=== PATIENT | female | born 1965 | race Two or more races ===

== ENCOUNTER 2024-10-06 14:01 | Emergency (ER) | payer MEDICARE, MEDICAID, SELFPAY ==
--- NOTE | 2024-10-06 14:18 | XR_ITS ---
Examination: Forearm, left, 2 views. Technique: Forearm, AP, lateral 2 views Date and time of exam: October 06, 2024 1839 hours INDICATIONS: Patient fell 4 days ago with injury to the forearm, forearm pain. FINDINGS: No acute fracture No dislocation IMPRESSION: No acute fracture
--- NOTE | 2024-10-06 14:18 | XR_ITS ---
Examination: Shoulder,left, 3 views Technique: Shoulder AP internal rotation, AP external rotation, Y view shoulder, 3 views Exam date and time :October 06, 2024 1539 hours INDICATIONS: Patient fell 4 days ago with injury to the shoulder, shoulder pain. FINDINGS: Acute comminuted fracture humeral neck without significant displacement Prominent osteopenia Prominent narrowing glenohumeral joint IMPRESSION: Acute comminuted fracture humeral neck
--- NOTE | 2024-10-06 14:18 | XR_ITS ---
Examination: Left elbow 3 views Technique: Elbow AP, oblique, lateral 3 views Exam date and time: October 06, 2024 1539 hours INDICATIONS: Left elbow pain beginning 4 days ago. FINDINGS: No acute fracture No dislocation No foreign body IMPRESSION: No acute fracture.
[2024-10-06 14:24] VITALS: BP 129/85; PULSE 73; RESP 20; TEMP 37; O2SAT 100
--- NOTE | 2024-10-06 14:30 | EDNOTE_ITS ---
<Statement entered by Ilene Manzanares MD - 10/06/24 17:40> As co-signing physician, I was present and available for consult prn. I concur with the plan and care as documented by the midlevel provider. Upper Extremity Injury RME/HPI General Chief Complaint: Extremity Injury, Upper Stated Complaint: fall, c/o left upper arm pain Time Seen by Provider: 10/06/24 14:10 Source: patient Arrival date/time: 10/06/24 14:01 59-year-old female with no known medical history presents to the emergency room with a chief complaint of left upper arm pain x 2 days. Patient states that since his head injury her bruising has progressively gotten worse. Mode of arrival: ambulatory Limitations: no limitations Related Data Previous Rx's ?Medication ?Instructions ?Recorded hydrocodone 5 mg-acetaminophen 325 1 tab PO BID PRN pa in #14 tabs 07/26/ mg tablet ibuprofen 600 mg tablet 600 mg PO Q8H PRN fever or p ain 10/06/24 #20 tabs Allergies Allergy/AdvReac Type Severity Reaction Status Date / Time NKA Allergy Uncoded 10/06/24 14:05 Review of Systems Review of Systems Systems Reviewed: All systems reviewed, normal except as documented Constitutional Constitutional: Reports system reviewed and no additional complaints, except as documented, Denies fatigue, Denies fever(s), Denies headache(s) and Denies weakness Eyes Eyes: Reports system reviewed and no additional complaints, except as documented, Denies blurry vision and Denies change in vision ENT Ears, Nose, Mouth, and Throat: Reports system reviewed and no additional complaints, except as documented, Denies otalgia, Denies headache(s), Denies nasal congestion, Denies throat swelling and Denies vertigo Cardiovascular Cardiovascular: Reports system reviewed and no additional complaints, except as documented, Denies chest pain, Denies dyspnea and Denies dyspnea on exertion Respiratory Respiratory: Reports system reviewed and no additional complaints, except as documented, Denies chest congestion, Denies cough, Denies dyspnea, Denies dyspnea on exertion and Denies wheezing Gastrointestinal Gastrointestinal: Reports system reviewed and no additional complaints, except as documented, Denies abdominal pain, Denies cramping, Denies nausea and Denies vomiting Genitourinary Genitourinary: Reports system reviewed and no additional complaints, except as documented Musculoskeletal Musculoskeletal: Reports system reviewed and no additional complaints, except as documented, Reports arthralgias, Denies back pain, Reports joint swelling and Reports limited range of motion Integumentary/Breasts Skin/Breast: Reports system reviewed and no additional complaints, except as documented and Denies wounds Neurologic Neurologic: Reports system reviewed and no additional complaints, except as documented, Denies confusion, Denies headache(s), Denies lack of coordination, Denies vertigo and Denies weakness Psychiatric Psychiatric: Reports system reviewed and no additional complaints, except as documented, Denies anxiety, Denies confusion, Denies depression, Denies paranoia, Denies suicidal ideation and Denies tactile hallucinations Endocrine Endocrine: Reports system reviewed and no additional complaints, except as documented and Denies fatigue Hematologic/Lymphatic Hematologic/Lymphatic: Reports system reviewed and no additional complaints, except as documented and Denies lymphadenopathy Allergic/Immunologic Allergic/Immunologic: Reports system reviewed and no additional complaints, except as documented, Denies throat swelling, Denies urticaria and Denies wheezing Past Medical History Social History SMOKING STATUS: Never smoker ED Exam General Limitations: Present no limitations General appearance: Present alert and in no apparent distress Head Head exam: Present atraumatic Eye Eye exam: Present normal appearance, PERRL and EOMI ENT ENT exam: Present normal exam, normal oropharynx and mucous membranes moist Neck Neck exam: Present normal inspection, full ROM and trachea midline Chest Chest inspection: Present normal inspection and symmetric chest wall rise Respiratory Respiratory exam: Present normal lung sounds bilaterally Cardiovascular Cardiovascular exam: Present regular rate, normal rhythm and normal heart sounds Abdominal Exam Abdominal exam: Present soft and normal bowel sounds Extremities Exam Extremities exam: Present normal inspection and full ROM Expanded Upper Extremity Exam Shoulder exam: Present tenderness, swelling and tenderness over AC joint; Absent full ROM Arm exam: Present normal inspection Elbow exam: Present normal inspection Forearm/Wrist exam: Present normal inspection Hand exam: Present normal inspection Vascular exam: Normal capillary refill Back Exam Back exam: Present normal inspection and full ROM Neurological Exam Neurological exam: Present alert, oriented X3 and CN II-XII intact Psychiatric Psychiatric exam: Present normal affect and normal mood Skin Skin exam: Present warm, dry, intact and normal color Course Quality Measures none Orders Category Date Time Status Splint / Immobilizer STAT Care 10/06/24 16:53 Active XR elbow comp LT min 3V Stat Exams 10/06/24 14:18 Completed XR forearm LT 2V Stat Exams 10/06/24 14:18 Completed XR shoulder LT min 2V Stat Exams 10/06/24 14:18 Completed Vital Signs Vital signs: Vital Signs Temperature 98.6 F 10/06/24 14:24 Pulse Rate 73 10/06/24 14:24 Respiratory Rate 20 10/06/24 14:24 Blood Pressure 129/85 H 10/06/24 14:24 Pulse Oximetry (%) 100 10/06/24 14:24 Oxygen Delivery Method Room Air 10/06/24 14:24 O2 saturation 100% within normal limits Extremity Injury MDM Narrative MDM Narrative:: 59-year-old female with no known medical history presents to the emergency room with a chief complaint of left upper arm pain x 2 days. Patient states that since his head injury her bruising has progressively gotten worse. Patient is hemodynamically stable and in no apparent distress Physical examination shows tenderness and pain to the patient's left shoulder area. X-ray of the shoulder was completed and shows an acute comminuted fracture of the humeral neck A shoulder immobilizer was used to stabilize the patient's shoulder. Dr Rainey was stopped by the orthopedic on-call was consulted and he will see the patient at 10 AM in his office. Patient was discharged and educated to follow-up with primary care provider in the next 24 to 48 hours and return to the emergency room for any evidence of worsening signs or symptoms Patient data External records reviewed:: [facility] previous records Clinical information provided by:: patient Social determinants that could affect healthcare access:: none Patient has the following chronic illnesses:: No chronic illness How is presenting disease/condition affected by chronic disease/condition?: no chronic disease Evaluation data The following diagnostics were reviewed and interpreted by me:: lab results and radiology exam(s) Lab and/or radiology exams considered but not ordered:: Labs and radiology exams considered and ordered Interpretation Summary: Shoulder [id number]: Acute comminuted fracture humeral neck without significant displacement Prominent osteopenia Prominent narrowing glenohumeral joint IMPRESSION: Acute comminuted fracture humeral neck Medications / Prescriptions Medications or Prescriptions considered but not ordered:: Medication given Medication administrations:: Medication given Consultations Consultation(s) initiated? (list below): No Diagnosis Upper Extremity Injury Differential Diagnosis: dislocation of shoulder and other (Shoulder fracture/shoulder dislocation/shoulder sprain) Most likely diagnosis given after review of the tests above:: Shoulder fracture Admission Indicated Admission indicated?: not indicated Admission Request Was there a request for admission?: No Disposition Plan Disposition Plan: Discharge Discharge Attestation Discharge Attestation: The patient and all family members were given an opportunity to ask questions and understood the discharge instructions. Discharge instructions specifically effects, indications for sooner follow up or return to the emergency department, and the expected course of current diagnosis. Patient condition: Stable Discharge Plan Plan Patient Disposition: HOME (Self Care) Disposition Comment: Stable Prescriptions/Referrals Prescriptions/Med Rec: New ibuprofen 600 mg tablet 600 mg PO Q8H PRN (Reason: fever or pain) Qty: 20 0RF No Action hydrocodone-acetaminophen 5-325 mg tablet 1 tab PO BID MDD 10 PRN (Reason: pain) Qty: 14 0RF Referrals: Hoang Hazel MD [Primary Care Provider] - In 1 week Donnie Rainey MD [Physician] - 10/09/24 10:00 am Problem List Clinical Impression: Fracture of neck of humerus Patient/Caregiver Discharge Instructions Education Materials: ED Fracture, Shoulder Additional Instructions: Por favor, consulte con cotter m?dico de cabecera en las pr?ximas 24 a 48 horas. Cotter radiograf?a mostr? júnior fractura aguda del warren humeral. Habl? con el Dr. Rainey, ortopdominicista de edilma, quien lo atender? el jueves a las 10:00 a. m. en cotter consultorio. Adjunto cotter direcci?n y n?cristina de tel?fono arriba. Si observa cualquier signo de empeoramiento de los signos o s?ntomas, acuda a urgencias de inmediato. Print Language: Hebrew Stand Alone Forms: Heather Award Info., Work/School Release, Patient Portal Info Letter VÍCTOR/FRANK Supervising Physician VÍCTOR/FRANK Supervising Physician: Dr. MANZANARES
== END 2024-10-06 17:44 | disposition home or self-care (01) ==
PROVIDERS: Emergency Provider Emergency Medicine; PCP Family Medicine
DX: S42.212A Unspecified displaced fracture of surgical neck of left humerus, initial encounter for closed fracture (principal); X58.XXXA Exposure to other specified factors, initial encounter
CPT/HCPCS: 73030; 73080; 73090; 99283

== ENCOUNTER → 2024-11-05 | Outpatient (CLI) | payer MEDICARE, MEDICAID, SELFPAY ==
--- NOTE | 2024-11-05 10:30 | XR_ITS ---
Examination: Shoulder,left, 3 views Technique: Shoulder AP internal rotation, AP external rotation, Y view shoulder, 3 views Exam date and time :November 05, 2024 1046 hours Comparison October 06, 2024 INDICATIONS: Patient fell one month ago with fracture humeral neck FINDINGS: Severe osteopenia Early healing fracture humeral neck with stable and satisfactory alignment IMPRESSION: Early healing fracture left humeral neck with stable and satisfactory alignment
== END | disposition home or self-care (01) ==
LOC: CDIM 10:05
PROVIDERS: PCP Family Medicine; Referring Provider Orthopaedic Surgery; Visit Provider Orthopaedic Surgery
DX: S42.212A Unspecified displaced fracture of surgical neck of left humerus, initial encounter for closed fracture (principal); W19.XXXA Unspecified fall, initial encounter
CPT/HCPCS: 73030

== ENCOUNTER → 2025-01-14 | Outpatient (CLI) | payer MEDICARE, MEDICAID, SELFPAY ==
--- NOTE | 2025-01-14 09:45 | XR_ITS ---
Examination: Shoulder,left, 3 views Technique: Shoulder AP internal rotation, AP external rotation, Y view shoulder, 3 views Exam date and time :January 14, 2025 0949 hours INDICATIONS: Acute fracture humeral neck October 06, 2024 FINDINGS: Partial healing fracture humeral neck with stable alignment IMPRESSION: Partial healing fracture humeral neck with stable alignment compared with 02/05/2025 Suggest continued follow-up
== END | disposition home or self-care (01) ==
PROVIDERS: PCP Family Medicine; Referring Provider Orthopaedic Surgery; Visit Provider Orthopaedic Surgery
DX: S42.212A Unspecified displaced fracture of surgical neck of left humerus, initial encounter for closed fracture (principal); X58.XXXA Exposure to other specified factors, initial encounter
CPT/HCPCS: 73030

== ENCOUNTER → 2025-03-10 | Outpatient (CLI) | payer MEDICARE, MEDICAID, SELFPAY ==
--- NOTE | 2025-03-10 10:23 | XR_ITS ---
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
== END | disposition home or self-care (01) ==
PROVIDERS: PCP Family Medicine; Referring Provider Specialist; Visit Provider Specialist
DX: S42.215D Unspecified nondisplaced fracture of surgical neck of left humerus, subsequent encounter for fracture with routine healing (principal); X58.XXXD Exposure to other specified factors, subsequent encounter
CPT/HCPCS: 73030

== ENCOUNTER → 2025-04-22 | Outpatient (CLI) | payer MEDICARE, MEDICAID, SELFPAY ==
--- NOTE | 2025-04-22 09:44 | XR_ITS ---
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
== END | disposition home or self-care (01) ==
LOC: CDIM 09:36
PROVIDERS: PCP Family Medicine; Referring Provider Orthopaedic Surgery; Visit Provider Orthopaedic Surgery
DX: S42.215D Unspecified nondisplaced fracture of surgical neck of left humerus, subsequent encounter for fracture with routine healing (principal); X58.XXXD Exposure to other specified factors, subsequent encounter
CPT/HCPCS: 73030